=== PATIENT | female | born 1970 | race African-American/Black ===

== ENCOUNTER 2018-02-03 18:50 | Emergency (ER) | payer OTHER ==
[2018-02-03 19:11] VITALS: BP 138/79; PULSE 88; TEMP 98.4; BMI 30.9
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
[2018-02-03] MEDS ORDERED: KETOROLAC TROMETHAMINE 60 MG/2 ML VIAL IM ONE (19:39)
[2018-02-03] MEDS ORDERED: KETOROLAC TROMETHAMINE 60 MG/2 ML VIAL ONE (19:40)
== END 2018-02-03 20:35 | disposition home or self-care (01) ==
LOC: FER 18:50
PROC: 2W3DX1Z Immobilization of Left Lower Arm using Splint (ICD-10-PCS; principal; 2018-02-03)
PROC: 3E0233Z Introduction of Anti-inflammatory into Muscle, Percutaneous Approach (ICD-10-PCS; 2018-02-03)
DX: M67.48 Ganglion, other site (principal); M54.31 Sciatica, right side
CPT/HCPCS: 73110-TC-LR-FY; 73130-TC-LR-FY; 99282-25

== ENCOUNTER 2019-02-21 21:20 | Emergency (ER) | payer OTHER ==
[2019-02-21 21:28] VITALS: BP 148/82; PULSE 84; TEMP 98.1; BMI 31.2
--- NOTE | 2019-02-21 21:57 | PDOC ---
Documentation entered by Mary Blackwell SCRIBE, acting as scribe for Sarthak Rose MD. Sarthak Rose MD: This documentation has been prepared by the Rishi bird Adrianna, SCRIBE, under my direction and personally reviewed by me in its entirety. I confirm that the documentation accurately reflects all work, treatment, procedures, and medical decision making performed by me. History of Present Illness - General Chief Complaint: Pain, Acute Stated Complaint: CHEST AND BACK PAIN ALL DAY Time Seen by Provider: 02/21/19 21:23 History Source: Patient Exam Limitations: No Limitations - History of Present Illness Initial Comments: HPI: The patient is a 48 year old female, with a significant PMH of HTN and daily tobacco use, who presents to the ED for shortness of breath for 2 days. Patient complains of sudden onset shortness of breath that began yesterday. Patient notes she has felt constantly short of breath, without any identifiable aggravating or alleviating factors. She notes it does not hurt to breath or take a deep breath. Patient endorses associated chest tightness, palpitations, and bilateral upper extremity/upper back pain. She denies any recent travel, recent illnesses, lower extremity edema, or history of similar symptoms. PAST MEDICAL HISTORY: HTN PAST SURGICAL HISTORY: no significant history FAMILY HISTORY: no pertinent history SOCIAL HISTORY: Current everyday smoker (1/2 ppd for 20 years). Pt lives with family and is employed. MEDICATIONS: reviewed ALLERGIES: As per nursing notes Adult ROS General: No fevers or chills, no weakness, no weight loss HEENT: No change in vision. No sore throat,. No ear pain CardioVascular: +Palpitations. +Chest tightness. Respiratory: +Shortness of breath. No cough, or wheezing. Gastrointestinal: no nausea, vomiting, diarrhea or constipation, No rectal bleeding Genitourinary: No dysuria, hematuria, or frequency Musculoskeletal: +Bilateral upper extremity/upper back pain. Neurologic: No headache, vertigo, dizziness or loss of consciousness Psychiatric: nor depression Skin: No rashes or easy bruising Endocrine: no increased thirst or abnormal weight change Allergic: no skin or latex allergy All other systems reviewed and normal Adult Exam: General: Well-nourished well-developed individual, no acute distress HEENT: Throat: Normal, tonsils normal, no erythema or exudate Neck: Supple, no meningeal signs, no lymphadenopathy Eyes:Pupils equal reactive and round, extraocular motion intact Chest: Nontender to palpation Cardiac: S1-S2 normal, regular rate and rhythm, no murmurs rubs or gallops Respiratory: +Tachypneic. Lungs clear to auscultation bilateral Abdomen: Soft, nondistended, normal bowel sounds, nontender to palpation diffusely Extremities: Warm, dry, no cyanosis, clubbing, or edema Skin: No rashes Neuro: Alert and oriented x3, nonfocal exam, grossly intact, normal gait Psych: Normal mood and affect 02/21/19 23:23 Assessment and plan: This is a 48-year-old female who comes in complaining of pleuritic type chest pain x24 hours. Patient does have some risk factors including smoking and hypertension. Work-up was initiated including CBC, comp, chest x-ray, EKG Chest x-ray showed no acute pathology. EKG showed normal sinus rhythm with some possible left atrial enlargement otherwise nonspecific ST abnormalities. Patient's heart score is 3 Patient's troponin and d-dimer are negative Patient discharged with follow-up with her primary care doctor. Patient told to take an anti-inflammatory. Patient given 30 mg of Toradol here in the ED Past History - Past Medical History Allergies/Adverse Reactions: Allergies Allergy/AdvReac Type Severity Reaction Status Date / Time No Known Allergies Allergy Verified 02/21/19 21:23 Home Medications: Ambulatory Orders Amlodipine Besylate [Norvasc -] 10 mg PO DAILY 02/16/17 Benazepril HCl 10 mg PO DAILY 02/03/18 COPD: No HTN: Yes - Immunization History Td Vaccination: Yes - Psycho Social/Smoking Cessation Hx Smoking Status: Yes Smoking History: Current every day smoker Years of Tobacco Use: 10 Have you smoked in the past 12 months: Yes Number of Cigarettes Smoked Daily: 10 Information on smoking cessation initiated: Yes 'Breaking Loose' booklet given: 02/03/18 Hx Alcohol Use: No Drug/Substance Use Hx: No Substance Use Type: None *Physical Exam - Vital Signs Last Vital Signs Temp Pulse Resp BP Pulse Ox 98.1 F 84 16 148/82 99 02/21/19 21:25 02/21/19 21:25 02/21/19 21:25 02/21/19 21:25 02/21/19 21:25 Heart Score/ECG Review - History History: Slightly suspicious - Electrocardiogram EKG: Non specific repolarization disturbance - Age Age: 45-65 - Risk Factors Risk Factors Heart Score: Yes Hx Hypertension, Yes Smoking History Based on the list above the patient has:: 1-2 risk factors - Troponin Troponin: </= normal limit - Score Heart Score - Total: 3 ED Treatment Course - LABORATORY CBC & Chemistry Diagram: 02/21/19 21:45 02/21/19 21:45 Discharge - Discharge Information Problems reviewed: Yes Clinical Impression/Diagnosis: Pleuritic chest pain Condition: Stable Disposition: HOME - Admission No - Follow up/Referral - Patient Discharge Instructions Additional Instructions: For the pain take ibuprofen 3 tablets 3 times a day with food do not take on an empty stomach. Return to the emergency department immediately with ANY new, persistent or worsening symptoms. Continue any medications as previously prescribed by your physician. You should follow up with your primary doctor as soon as possible regarding today's emergency department visit. . Please make sure your doctor reviews the results of your emergency evaluation. Thank you for coming to the Emergency Department today for your care. It was a pleasure to see you today. Please note that your evaluation is INCOMPLETE until you follow-up with your doctor. - Post Discharge Activity
[2019-02-21 22:09] LABS: HEMATOCRIT 37.5 % (32.4-45.2)
[2019-02-21 22:13] LABS: BASO % 0.8 % (0-2.0); EOS % 1.2 % (0-4.5); HEMOGLOBIN 11.6 GM/dl (10.7-15.3); MCH 22.6 pg (25.7-33.7); MCHC 31.1 g/dl (32.0-36.0); MEAN CELL VOLUME 72.8 fl (80-96); MEAN PLT VOLUME 7.9 fl (7.5-11.1); MONO % 6.8 % (3.8-10.2); NEUT % 37.2 % (42.8-82.8); PLATELET COUNT 344 K/MM3 (134-434); RBC 5.14 M/mm3 (3.60-5.2); RDW 14.8 % (11.6-15.6); WHITE BLOOD COUNT 10.6 K/mm3 (4.0-10.8)
[2019-02-21 22:15] LABS: ADD RBC MORPHOLOGY YES
[2019-02-21 22:16] LABS: BILIRUBIN,TOTAL 0.6 mg/dl (0.2-1); CALCIUM 8.8 mg/dl (8.5-10); CREATININE 0.6 mg/dl (0.55-1.3); POTASSIUM 4.2 mmol/L (3.5-5.1); TOT PROT 7.1 g/dl (6.4-8.2)
[2019-02-21 22:46] LABS: PLATELET ESTIMATE ADEQUATE; TARGET CELLS 2+
[2019-02-21 23:03] LABS: EPITHELIAL CELLS FEW /hpf
[2019-02-21] MEDS ORDERED: KETOROLAC TROMETHAMINE 30 MG/1 ML VIAL IVPUSH ONE (23:22)
[2019-02-21] MEDS ORDERED: KETOROLAC TROMETHAMINE 30 MG/1 ML VIAL ONE (23:22)
--- NOTE | 2019-02-22 09:23 | EKG ---
Test Reason : Blood Pressure : / mmHG Vent. Rate : 077 BPM Atrial Rate : 077 BPM P-R Int : 166 ms QRS Dur : 074 ms QT Int : 364 ms P-R-T Axes : 059 -28 011 degrees QTc Int : 411 ms NORMAL SINUS RHYTHM POSSIBLE LEFT ATRIAL ENLARGEMENT LEFT VENTRICULAR HYPERTROPHY ABNORMAL ECG NO PREVIOUS ECGS AVAILABLE Confirmed by REMBERTO CHARLES MD ([id number]) on 02/22/2019 9:22:51 AM Referred By: DR MARQUEZ Confirmed By:REMBERTO CHARLES MD
== END 2019-02-21 23:33 | disposition home or self-care (01) ==
LOC: FER 21:20
PROC: 3E0333Z Introduction of Anti-inflammatory into Peripheral Vein, Percutaneous Approach (ICD-10-PCS; principal; 2019-02-21)
DX: R07.81 Pleurodynia (principal); I10 Essential (primary) hypertension; F17.210 Nicotine dependence, cigarettes, uncomplicated
CPT/HCPCS: 36415; 71045-TC-FY; 80053; 81003; 81015; 82550; 82553; 84484; 85025; 85379; 93005; 99282-25

== ENCOUNTER 2022-05-16 17:30 | Emergency (ER) | payer OTHER ==
[2022-05-16 17:47] VITALS: BP 122/73; PULSE 90; RESP 16; TEMP 99.1; BMI 26.4
== END 2022-05-16 19:37 | disposition home or self-care (01) ==
LOC: FER 17:30
DX: S00.33XA Contusion of nose, initial encounter (principal); R04.0 Epistaxis; Y04.0XXA Assault by unarmed brawl or fight, initial encounter
CPT/HCPCS: 70486-TC; 99284-25